=== PATIENT | male | born 1980 | race American Indian/Alaskan Native ===

== ENCOUNTER 2020-08-01 21:22 | Inpatient (IN) | payer OTHER ==
[2020-08-01] MEDS ORDERED: SODIUM CHLORIDE 0.9% 1000 ML 1,000 ML IV ONE ×2 (21:40→22:10)
--- NOTE | 2020-08-01 21:50 | Emergency Department Report ---
HPI - General Chief Complaint: Arrhythmia/Palpitations Time Seen by Provider: 08/01/20 21:28 - HPI HPI: Room 3 The patient is a 40-year-old male present with a chief complaint of syncope. The patient was at a restaurant stating he had eaten some chips and salsa when he says he began feeling lightheaded and short of breath. Patient states he got up to go outside to "get some air" when he had a syncopal episode. The patient awakened on the floor inside the restaurant said he felt hot and diaphoretic and then had episodes of nausea and vomiting. Patient states he began to feel better after vomiting. Family escorted/carried the patient outside when they encountered EMS who was on scene for another event. EMS states the patient was diaphoretic bradycardic and hypotensive with a BP of 84/50 and a heart rate of sinus bradycardia of 42 bpm. EMS initiated dopamine and transported the patient to the ED. In the ED the patient was found to be slightly hypertensive and tachycardic but states that he feels good. Dopamine was paused. Patient denies any recent flights or long car trips. Patient denied having pain of any type. Patient denies any history of fever or cough. Patient states he felt "good all day." ED Past Medical Hx - Past Medical History Previous Medical History?: No - Surgical History Past Surgical History?: Yes Additional Surgical History: Hernia - Family History Family history: no significant - Social History Smoking Status: Current Some Day Smoker Substance Use Type: None ED Review of Systems ROS: Stated complaint: HYPOTENSION/BRADYCARDIA Other details as noted in HPI Constitutional: diaphoresis Eyes: denies: eye pain ENT: denies: throat pain Respiratory: shortness of breath. denies: cough Cardiovascular: denies: chest pain Endocrine: no symptoms reported Gastrointestinal: nausea, vomiting Genitourinary: denies: dysuria Musculoskeletal: denies: back pain Neurological: denies: headache Physical Exam - Physical Exam Vital Signs: Vital Signs 08/01/20 08/01/20 21:44 21:45 Pulse Rate 75 74 Respiratory 23 25 H Rate Blood Pressure 168/84 O2 Sat by Pulse 94 92 Oximetry Physical Exam: GENERAL: The patient is well-developed well-nourished male lying on stretcher holding emesis bag but not appearing to be in acute distress. [] HEENT: Normocephalic. Atraumatic. Extraocular motions are intact. Patient has moist mucous membranes. NECK: Supple. Trachea midline CHEST/LUNGS: Clear to auscultation. There is no respiratory distress noted. HEART/CARDIOVASCULAR: Regular. There is tachycardia. There is no gallop rub or murmur. ABDOMEN: Abdomen is soft, nontender. Patient has normal bowel sounds. There is no abdominal distention. SKIN: There is no rash. There is no edema. There is no diaphoresis. NEURO: The patient is awake, alert, and oriented. The patient is cooperative. The patient has no focal neurologic deficits. The patient has normal speech. C ranial nerves II through XII grossly intact. GCS 15 MUSCULOSKELETAL: There is no evidence of acute injury. ED Course Vital Signs 08/01/20 08/01/20 21:44 21:45 Pulse Rate 75 74 Respiratory 23 25 H Rate Blood Pressure 168/84 O2 Sat by Pulse 94 92 Oximetry - Reevaluation(s) Reevaluation #1: 08/01/20 22:39 Patient's blood pressure has trended down to 89 systolic with a heart rate ranging from the 40s to 50s. Patient states he still feels good. Patient receiving second liter of IV fluid if vital signs not improve dopamine will be restarted - Consultations Consultation #1: 08/01/20 22:12 Cardiology paged 08/01/20 22:25 Case and EKG discussed with Dr. Nelson Gillespie-agrees with IV fluids and dopamine as needed - Central Line Placement Right Femoral Consent Obtained: verbal consent Time Out Performed: Yes Patient Placed on Monitor/Pulse Ox: Yes MD Prep: mask, gown, gloves Central Line Prep: Chlorhexidine scrub Local Anesthesia Used: Lidocaine 1% Amount of Anesthesia Used (mls): 5 Ultrasound Used for Placement: No Central Line Lumen Inserted: triple Reason for Insertion: High Alert Medication Bloods Obtained for Lab: No Central Line Position: good blood return, all ports aspirated, flus, other (Secured with adhesive) Dressing Applied: Tegaderm Patient Tolerated Procedure: well, no complications Complications: none ED Medical Decision Making - Lab Data Result diagrams: 08/01/20 21:49 08/01/20 21:49 Laboratory Tests 08/01/20 08/01/20 08/01/20 21:49 21:49 21:49 WBC 6.0 RBC 5.31 H Hgb 15.6 H Hct 47.5 H MCV 90 MCH 30 MCHC 33 RDW 14.8 Plt Count 298 Add Manual Diff Complete Total Counted 100 Seg Neutrophils % Hydrogen Braze Furnace Operator Seg Neuts % (Manual) 31.0 L Lymphocytes % (Manual) 50.0 H Monocytes % (Manual) 10.0 H Eosinophils % (Manual) 8.0 H Basophils % (Manual) 1.0 Nucleated RBC % Not Reportable Seg Neutrophils # Man 1.9 Band Neutrophils # 0.0 Lymphocytes # (Manual) 3.0 Abs React Lymphs (Man) 0.0 Monocytes # (Manual) 0.6 Eosinophils # (Manual) 0.5 H Basophils # (Manual) 0.1 Metamyelocytes # 0.0 Myelocytes # 0.0 Promyelocytes # 0.0 Blast Cells # 0.0 WBC Morphology Not Reportable Hypersegmented Neuts Not Reportable Hyposegmented Neuts Not Reportable Hypogranular Neuts Not Reportable Smudge Cells Not Reportable Toxic Granulation Not Reportable Toxic Vacuolation Not Reportable Dohle Bodies Not Reportable Pelger-Huet Anomaly Not Reportable Kamryn Rods Not Reportable Platelet Estimate Not Reportable Clumped Platelets Not Reportable Plt Clumps, EDTA Not Reportable Large Platelets Not Reportable Giant Platelets Not Reportable Platelet Satelliting Not Reportable Plt Morphology Comment Not Reportable RBC Morphology Normal Dimorphic RBCs Not Reportable Polychromasia Not Reportable Hypochromasia Not Reportable Poikilocytosis Not Reportable Anisocytosis Not Reportable Microcytosis Not Reportable Macrocytosis Not Reportable Spherocytes Not Reportable Pappenheimer Bodies Not Reportable Sickle Cells Not Reportable Target Cells Not Reportable Tear Drop Cells Not Reportable Ovalocytes Not Reportable Helmet Cells Not Reportable [place] Bodies Not Reportable [place] Rings Not Reportable [place] Cells Not Reportable Bite Cells Not Reportable Crenated Cell Not Reportable Elliptocytes Not Reportable Acanthocytes (Spur) Not Reportable Rouleaux Not Reportable Hemoglobin C Crystals Not Reportable Schistocytes Not Reportable Malaria parasites Not Reportable Jigar Bodies Not Reportable Hem Pathologist Commnt No D-Dimer < 135.00 Sodium 139 Potassium 3.6 Chloride 99.2 Carbon Dioxide 25 Anion Gap 18 BUN 13 Creatinine 1.2 Estimated GFR > 60 BUN/Creatinine Ratio 11 Glucose 150 H Lactic Acid Calcium 9.3 Magnesium Total Bilirubin 0.30 AST 25 ALT 19 Alkaline Phosphatase 90 Total Creatine Kinase 235 H CK-MB (CK-2) 2.1 CK-MB (CK-2) Rel Index 0.8 Troponin T NT-Pro-B Natriuret Pep Total Protein 8.4 H Albumin 4.9 Albumin/Globulin Ratio 1.4 Lipase 36 TSH Free T4 Plasma/Serum Alcohol 08/01/20 08/01/20 08/01/20 21:49 21:49 21:49 WBC RBC Hgb Hct MCV MCH MCHC RDW Plt Count Add Manual Diff Total Counted Seg Neutrophils % Seg Neuts % (Manual) Lymphocytes % (Manual) Monocytes % (Manual) Eosinophils % (Manual) Basophils % (Manual) Nucleated RBC % Seg Neutrophils # Man Band Neutrophils # Lymphocytes # (Manual) Abs React Lymphs (Man) Monocytes # (Manual) Eosinophils # (Manual) Basophils # (Manual) Metamyelocytes # Myelocytes # Promyelocytes # Blast Cells # WBC Morphology Hypersegmented Neuts Hyposegmented Neuts Hypogranular Neuts Smudge Cells Toxic Granulation Toxic Vacuolation Dohle Bodies Pelger-Huet Anomaly Kamryn Rods Platelet Estimate Clumped Platelets Plt Clumps, EDTA Large Platelets Giant Platelets Platelet Satelliting Plt Morphology Comment RBC Morphology Dimorphic RBCs Polychromasia Hypochromasia Poikilocytosis Anisocytosis Microcytosis Macrocytosis Spherocytes Pappenheimer Bodies Sickle Cells Target Cells Tear Drop Cells Ovalocytes Helmet Cells [place] Bodies [place] Rings Yamilet Cells Bite Cells Crenated Cell Elliptocytes Acanthocytes (Spur) Rouleaux Hemoglobin C Crystals Schistocytes Malaria parasites Jigar Bodies Hem Pathologist Commnt D-Dimer Sodium Potassium Chloride Carbon Dioxide Anion Gap BUN Creatinine Estimated GFR BUN/Creatinine Ratio Glucose Lactic Acid 2.20 H* Calcium Magnesium Total Bilirubin AST ALT Alkaline Phosphatase Total Creatine Kinase CK-MB (CK-2) CK-MB (CK-2) Rel Index Troponin T < 0.010 NT-Pro-B Natriuret Pep 48.37 Total Protein Albumin Albumin/Globulin Ratio Lipase TSH 5.650 H Free T4 1.12 Plasma/Serum Alcohol 08/01/20 08/01/20 21:49 21:49 WBC RBC Hgb Hct MCV MCH MCHC RDW Plt Count Add Manual Diff Total Counted Seg Neutrophils % Seg Neuts % (Manual) Lymphocytes % (Manual) Monocytes % (Manual) Eosinophils % (Manual) Basophils % (Manual) Nucleated RBC % Seg Neutrophils # Man Band Neutrophils # Lymphocytes # (Manual) Abs React Lymphs (Man) Monocytes # (Manual) Eosinophils # (Manual) Basophils # (Manual) Metamyelocytes # Myelocytes # Promyelocytes # Blast Cells # WBC Morphology Hypersegmented Neuts Hyposegmented Neuts Hypogranular Neuts Smudge Cells Toxic Granulation Toxic Vacuolation Dohle Bodies Pelger-Huet Anomaly Kamryn Rods Platelet Estimate Clumped Platelets Plt Clumps, EDTA Large Platelets Giant Platelets Platelet Satelliting Plt Morphology Comment RBC Morphology Dimorphic RBCs Polychromasia Hypochromasia Poikilocytosis Anisocytosis Microcytosis Macrocytosis Spherocytes Pappenheimer Bodies Sickle Cells Target Cells Tear Drop Cells Ovalocytes Helmet Cells [place] Bodies [place] Rings [place] Cells Bite Cells Crenated Cell Elliptocytes Acanthocytes (Spur) Rouleaux Hemoglobin C Crystals Schistocytes Malaria parasites Jigar Bodies Hem Pathologist Commnt D-Dimer Sodium Potassium Chloride Carbon Dioxide Anion Gap BUN Creatinine Estimated GFR BUN/Creatinine Ratio Glucose Lactic Acid Calcium Magnesium 2.00 Total Bilirubin AST ALT Alkaline Phosphatase Total Creatine Kinase CK-MB (CK-2) CK-MB (CK-2) Rel Index Troponin T NT-Pro-B Natriuret Pep Total Protein Albumin Albumin/Globulin Ratio Lipase TSH Free T4 Plasma/Serum Alcohol < 0.01 - EKG Data -: EKG Interpreted by Me Rate: bradycardia (55 bpm) - EKG Data When compared to previous EKG there are: previous EKG unavailable Interpretation: other (Ectopic atrial burst bradycardia) - Radiology Data Radiology results: report reviewed (Chest x-ray), image reviewed (Chest x-ray) interpreted by me: Chest x-ray-no focal infiltrates, no pneumothorax. No foreign body seen [facility] [address] [place] [address] XRay Report Signed Patient: VERONICA MORA MR#: [id number] : 1980 Acct:[id number] Age/Sex: 40 / M ADM Date: 08/01/20 Loc: ED Attending Dr: Ordering Physician: DAVID MORA MD Date of Service: 08/02/20 Procedure(s): XR chest 1V ap Accession Number(s): [id number] cc: DAVID MORA MD Fluoro Time In Minutes: CHEST 1 VIEW 08/01/2020 11:23 PM INDICATION / CLINICAL INFORMATION: Shortness of breath. COMPARISON: None available. FINDINGS: SUPPORT DEVICES: None. HEART / MEDIASTINUM: No significant abnormality. LUNGS / PLEURA: No significant pulmonary or pleural abnormality. No pneumothorax. ADDITIONAL FINDINGS: No significant additional findings. IMPRESSION: No acute abnormality. Signer Name: Luisito Carrillo MD Signed: 08/02/2020 12:26 AM Workstation Name: [id number] Transcribed By: ES Dictated By: Luisito Carrillo MD Electronically Authenticated By: Luisito Carrillo MD Signed Date/Time: 08/02/2025 DD/ TD/TT: Print Cancel - Differential Diagnosis Syncope, vasovagal syncope, PE, pneumonia, symptomatic anemia, Critical care attestation.: If time is entered above; I have spent that time in minutes in the direct care of this critically ill patient, excluding procedure time. ED Disposition Clinical Impression: Syncope, Hypotension, Bradycardia Disposition: DC-09 OP ADMIT IP TO THIS HOSP Is pt being admited?: Yes Does the pt Need Aspirin: Yes Condition: Fair Instructions: Syncope (ED) Referrals: PRIMARY CARE, [Primary Care Provider] - 3-5 Days Time of Disposition: 23:38 (Hospitalist paged (Dr Ruth))
[2020-08-01 22:25] LABS: Hematocrit 47.5 % (35.5-45.6); Hemoglobin 15.6 gm/dl (11.8-15.2); Mean Corpuscular HGB Conc 33 % (32-34); Mean Corpuscular Volume 90 fl (84-94); Platelet Count 298 K/mm3 (140-440); Red Blood Count 5.31 M/mm3 (3.65-5.03); Red Cell Distribution Width 14.8 % (13.2-15.2)
[2020-08-01 22:26] LABS: Alanine Aminotransferase 19 units/L (7-56); Albumin 4.9 g/dL (3.9-5); BUN/Creatinine Ratio 11; Blood Urea Nitrogen 13 mg/dL (9-20); Calcium 9.3 mg/dL (8.4-10.2); Creatine Kinase MB 2.1 ng/mL (0.0-4.0); Hemolysis Index 7
[2020-08-01 22:40] LABS: Free T4 (Free Thyroxine) 1.12 ng/dL (0.76-1.46)
[2020-08-01 23:08] LABS: RBC Morphology Normal; Total Cells Counted 100
[2020-08-01] MEDS ORDERED: DOPamine/D5W 800 MG/250 ML 800 MG/250 ML BAG IV ONE (23:24)
[2020-08-01] MEDS ORDERED: ASPIRIN 325 MG TAB PO ONE (23:38)
--- NOTE | 2020-08-02 00:30 | XRay Report ---
CHEST 1 VIEW 08/01/2020 11:23 PM INDICATION / CLINICAL INFORMATION: Shortness of breath. COMPARISON: None available. FINDINGS: SUPPORT DEVICES: None. HEART / MEDIASTINUM: No significant abnormality. LUNGS / PLEURA: No significant pulmonary or pleural abnormality. No pneumothorax. ADDITIONAL FINDINGS: No significant additional findings. IMPRESSION: No acute abnormality. Signer Name: Luisito Carrillo MD Signed: 08/02/2020 12:26 AM Workstation Name: [id number]
[2020-08-02] MEDS ORDERED: MAGNESIUM HYDROXIDE (MOM) ORAL LIQD UDC PO PRN (00:42)
[2020-08-02] MEDS ORDERED: ONDANSETRON 4 MG/2 ML INJ IV PRN (00:42)
[2020-08-02] MEDS ORDERED: ACETAMINOPHEN 325 MG TAB PO PRN (00:42)
[2020-08-02] MEDS ORDERED: SODIUM CHLORIDE 0.9% 1000 ML 1,000 ML IV SCH (00:45)
--- NOTE | 2020-08-02 00:58 | History and Physical Report ---
History of Present Illness Date of examination: 08/02/20 Date of admission: 08/02/20 00:27 Chief complaint: Syncope History of present illness: 40-year-old -Citizen Of [place] male with no significant past medical history brought into the emergency room today with a complaint of syncope. Patient indicates that he was having some chips and salsa when he suddenly started having some lightheadedness. He has also had some associated shortness of breath and thereafter had a syncopal episode. He later felt hot and diaphoretic in the restaurant and subsequently had episodes of nausea and vomiting. In route to the hospital EMS indicates that patient was bradycardic and hypotensive with a blood pressure of 84/50 with a heart rate of 42 bpm. Patient started on dopamine drip prior to arrival in the emergency room. Upon arrival in the emergency room blood pressure was slightly elevated and dopamine drip was withheld. Patient denies any fever or chills, no abdominal pain, no headache, no neck pain, no hematuria or dysuria. He denies any sick contacts and no recent travel. Denies any contact with anyone with COVID-19. Work-up in the emergency room today reveals EKG of ectopic atrial tachycardia. Chest x-ray shows no acute abnormality. Patient became hypotensive during the course of his stay in the emergency room and dopamine was restarted. Cleaning Manager Dr. Gillespie was consulted by the ER physician. Recommendation was to place patient on IV fluid and will be evaluated promptly. Patient is being admitted with syncope, bradycardia and hypotension. Past History Past Medical History: No medical history Past Surgical History: hernia repair Social history: smoking (Smokes tobacco occasionally), other (Uses marijuana occasionallylast use was about a week ago.) Family history: no significant family history Medications and Allergies Allergies Allergy/AdvReac Type Severity Reaction Status Date / Time No Known Allergies Allergy Verified 08/01/20 22:01 Active Meds: Active Medications Acetaminophen (Acetaminophen 325 Mg Tab) 650 mg PO Q4H PRN PRN Reason: Pain MILD(1-3)/Fever >100.5/WILSON Heparin Sodium (Porcine) (Heparin 5,000 Unit/1 Ml Vial) 5,000 unit SUB-Q Q8HR CRISTY Dopamine HCl/Dextrose (Intropin Drip 800 Mg/D5w 250 Ml) 800 mg in 250 mls @ 2.381 mls/hr IV TITR ONE; Protocol Stop: 08/06/20 08:23 Last Titration: 08/02/20 00:00 Dose: 6 mcg/kg/min, 7.144 mls/hr Documented by: Sodium Chloride (Nacl 0.9% 1000 Ml) 1,000 mls @ 125 mls/hr IV DIRECT CRISTY Magnesium Hydroxide (Magnesium Hydroxide (Mom) Oral Liqd Udc) 30 ml PO Q4H PRN PRN Reason: Constipation Ondansetron HCl (Ondansetron 4 Mg/2 Ml Inj) 4 mg IV Q8H PRN PRN Reason: Nausea And Vomiting Sodium Chloride (Sodium Chloride 0.9% 10 Ml Flush Syringe) 10 ml IV BID CRISTY Sodium Chloride (Sodium Chloride 0.9% 10 Ml Flush Syringe) 10 ml IV PRN PRN PRN Reason: LINE FLUSH Review of Systems Constitutional: no fever, no chills, no weakness Ears, nose, mouth and throat: no nasal congestion, no sore throat Cardiovascular: no chest pain, no palpitations Respiratory: no cough, no shortness of breath Gastrointestinal: nausea, vomiting, no abdominal pain, no diarrhea Genitourinary Male: no dysuria, no hematuria Musculoskeletal: no neck pain, no low back pain Integumentary: no rash, no pruritis Neurological: no headaches, no confusion Psychiatric: no anxiety, no depression Endocrine: no polyphagia, no polydipsia, no polyuria, no nocturia Exam - Constitutional Vitals: Temp Pulse Resp BP Pulse Ox 49 L 21 121/65 97 08/02/20 00:41 08/02/20 00:41 08/02/20 00:41 08/02/20 00:41 General appearance: Present: no acute distress, well-nourished - EENT Eyes: Present: PERRL, EOM intact. Absent: scleral icterus ENT: hearing intact, clear oral mucosa, dentition normal - Neck Neck: Present: supple, normal ROM - Respiratory Respiratory effort: normal Respiratory: bilateral: CTA - Cardiovascular Rhythm: regular Heart Sounds: Present: S1 & S2, gallop. Absent: systolic murmur, diastolic murmur, rub, click - Extremities Extremities: no ischemia, pulses intact, pulses symmetrical, No edema, normal temperature, normal color, Full ROM Peripheral Pulses: within normal limits - Abdominal General gastrointestinal: Present: soft, non-tender, non-distended, normal bowel sounds. Absent: mass - Integumentary Integumentary: Present: clear, warm, dry, normal turgor. Absent: rash - Musculoskeletal Musculoskeletal: strength equal bilaterally - Psychiatric Psychiatric: appropriate mood/affect, intact judgment & insight, memory intact, cooperative - Neurologic Neurologic: CNII-XII intact, no focal deficits, moves all extremities HEART Score - HEART Score Troponin: Troponin T < 0.010 ng/mL (0.00-0.029) 08/01/20 21:49 Results - Labs CBC & Chem 7: 08/01/20 21:49 08/01/20 21:49 Labs: Abnormal lab results 08/01/20 08/01/20 08/01/20 Range/Units 21:49 21:49 21:49 RBC 5.31 H (3.65-5.03) M/mm3 Hgb 15.6 H (11.8-15.2) gm/dl Hct 47.5 H (35.5-45.6) % Seg Neuts % (Manual) 31.0 L (40.0-70.0) % Lymphocytes % (Manual) 50.0 H (13.4-35.0) % Monocytes % (Manual) 10.0 H (0.0-7.3) % Eosinophils % (Manual) 8.0 H (0.0-4.3) % Eosinophils # (Manual) 0.5 H (0.0-0.4) K/mm3 Glucose 150 H (75-100) mg/dL Lactic Acid 2.20 H* (0.7-2.0) mmol/L Total Creatine Kinase 235 H (55-170) units/L Total Protein 8.4 H (6.3-8.2) g/dL TSH (0.270-4.200) mlU/mL 08/01/20 Range/Units 21:49 RBC (3.65-5.03) M/mm3 Hgb (11.8-15.2) gm/dl Hct (35.5-45.6) % Seg Neuts % (Manual) (40.0-70.0) % Lymphocytes % (Manual) (13.4-35.0) % Monocytes % (Manual) (0.0-7.3) % Eosinophils % (Manual) (0.0-4.3) % Eosinophils # (Manual) (0.0-0.4) K/mm3 Glucose (75-100) mg/dL Lactic Acid (0.7-2.0) mmol/L Total Creatine Kinase (55-170) units/L Total Protein (6.3-8.2) g/dL TSH 5.650 H (0.270-4.200) mlU/mL Assessment and Plan - Patient Problems (1) Syncope Current Visit: Yes Status: Acute Plan to address problem: Possibly secondary to hypotension and bradycardia. Patient currently on dopamine drip. We will schedule for echocardiogram. Consult placed to cardiology for further evaluation and recommendation. (2) Bradycardia Current Visit: Yes Status: Acute Plan to address problem: We await evaluation by cardiology. (3) Hypotension Current Visit: Yes Status: Acute Plan to address problem: We will continue patient on IV fluid and dopamine drip. We will monitor vital signs closely. (4) DVT prophylaxis Current Visit: Yes Status: Acute Plan to address problem: Patient placed on subcutaneous heparin. (5) Full code status Current Visit: Yes Status: Acute Plan to address problem: Patient is full code.
[2020-08-02 01:31] LABS: Bilirubin,Urine NEG (Negative); Blood,Urine NEG (Negative); Color,Urine Yellow (Yellow); Mucus,Urine 1+ /HPF; Protein,Urine <15 mg/dL mg/dL (Negative); Urobilinogen,Urine < 2.0 mg/dL (<2.0)
[2020-08-02 01:39] LABS: Amphetamine Screen,Urine PRESUMPTIVE NEGATIVE; Benzodiazepines Screen,Urine PRESUMPTIVE NEGATIVE; Cannabinoid Screen,Urine PRESUMPTIVE POSITIVE; Cocaine Screen,Urine PRESUMPTIVE NEGATIVE; Methadone Screen,Urine PRESUMPTIVE NEGATIVE; Opiate Screen,Urine PRESUMPTIVE NEGATIVE
[2020-08-02] MEDS: HEPARIN 5,000 UNIT/1 ML VIAL SUB-Q SCH ×3 (05:57→22:42)
--- NOTE | 2020-08-02 11:15 | Electrocardiograph Report ---
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
[2020-08-02] MEDS: SODIUM CHLORIDE 0.9% 1000 ML 1,000 ML IV SCH ×2 (11:53→20:24)
--- NOTE | 2020-08-02 14:04 | Event Note ---
Date: 08/02/20 Patient seen and examined this morning off dopamine drip. Will transfer to [facility] continue to monitor heart rate still trends into the low 40s. Blood pressure still low but asymptomatic. Patient given counseling about continued use of marijuana as he is not using it for any medical reasons.
--- NOTE | 2020-08-02 14:17 | Consultation ---
History of Present Illness Consult date: 08/02/20 Requesting physician: DAVID MORA Consult reason: bradycardia, syncope History of present illness: This patient is a 40-year-old male with no significant past medical history. He is previously unknown to our practice. Patient presents to [facility] ER via EMS after episode of syncope. Patient was eating at restaurant when he became hot and diaphoretic with episode of nausea/vomiting and light headedness. EMS initiated dopamine drip after patient was found to be hypotensive 84/50 and bradycardic heart rate 42. Patient currently denies any fever/chills, shortness of breath, chest pain, abdominal pain, N/V/D, recent illness or known exposures. At time of interview patient states he feels much better and is ready to be discharged home. Review of labs reveals subacute hypothyroidism with elevated TSH with normal T4. Past History Past Medical History: No medical history, other (See HPI) Past Surgical History: hernia repair Social history: smoking (Smokes tobacco occasionally), other (Uses marijuana occasionallylast use was about a week ago.) Family history: no significant family history Medications and Allergies Allergies Allergy/AdvReac Type Severity Reaction Status Date / Time No Known Allergies Allergy Verified 08/01/20 22:01 Home Medications Medication Instructions Recorded Confirmed Last Taken Type No Known Home Medications [No 08/02/20 08/02/20 Unknown History Reported Home Medications] Active Meds: Active Medications Acetaminophen (Acetaminophen 325 Mg Tab) 650 mg PO Q4H PRN PRN Reason: Pain MILD(1-3)/Fever >100.5/WILSON Last Admin: 08/02/20 05:56 Dose: 650 mg Documented by: Heparin Sodium (Porcine) (Heparin 5,000 Unit/1 Ml Vial) 5,000 unit SUB-Q Q8HR [facility] Last Admin: 08/02/20 13:01 Dose: 5,000 unit Documented by: Dopamine HCl/Dextrose (Intropin Drip 800 Mg/D5w 250 Ml) 800 mg in 250 mls @ 2.381 mls/hr IV TITR ONE; Protocol Stop: 08/06/20 08:23 Last Titration: 08/02/20 12:00 Dose: 0 mcg/kg/min, 0 mls/hr Documented by: Sodium Chloride (Nacl 0.9% 1000 Ml) 1,000 mls @ 100 mls/hr IV DIRECT [facility] Last Admin: 08/02/20 11:53 Dose: 100 mls/hr Documented by: Magnesium Hydroxide (Magnesium Hydroxide (Mom) Oral Liqd Udc) 30 ml PO Q4H PRN PRN Reason: Constipation Ondansetron HCl (Ondansetron 4 Mg/2 Ml Inj) 4 mg IV Q8H PRN PRN Reason: Nausea And Vomiting Sodium Chloride (Sodium Chloride 0.9% 10 Ml Flush Syringe) 10 ml IV BID [facility] Last Admin: 08/02/20 11:53 Dose: Not Given Documented by: Sodium Chloride (Sodium Chloride 0.9% 10 Ml Flush Syringe) 10 ml IV PRN PRN PRN Reason: LINE FLUSH Review of Systems Constitutional: no weight loss, no weight gain, no fever, no chills, no sweats Ears, nose, mouth and throat: no ear pain, no ear discharge, no nasal congestion, no nasal discharge, no sinus pressure Cardiovascular: syncope, lightheadedness, no chest pain, no orthopnea, no palpitations, no rapid/irregular heart beat, no edema, no shortness of breath, no dyspnea on exertion, no paroxysmal nocturnal dyspnea, no claudication, no phlebitis, no high blood pressure, no leg edema, no decreased exercise tolerance Respiratory: no cough, no cough with sputum, no hemoptysis, no shortness of breath, no dyspnea on exertion Gastrointestinal: nausea, vomiting, no abdominal pain, no diarrhea Genitourinary Male: no hematuria, no flank pain Musculoskeletal: no neck stiffness, no neck pain, no shooting arm pain, no arm numbness/tingling, no low back pain, no shooting leg pain Integumentary: no rash, no pruritis, no redness, no sores, no wounds Neurological: no head injury, no paralysis, no weakness, no parathesias, no numbness, no tingling, no seizures, no syncope Psychiatric: no anxiety Endocrine: no cold intolerance, no heat intolerance Hematologic/Lymphatic: no easy bruising, no easy bleeding Allergic/Immunologic: no urticaria Physical Examination Last Vital Signs Temp 97.6 F 08/02/20 12:00 Pulse 46 L 08/02/20 12:00 Resp 19 08/02/20 11:11 BP 124/74 08/02/20 11:11 Pulse Ox 100 08/02/20 11:11 General appearance: no acute distress HEENT: Positive: PERRL, Normocephaly, Mucus Membranes Moist Neck: Positive: neck supple, trachea midline Cardiac: Positive: Regular Rhythm, S1/S2, Bradycardia Lungs: Positive: Normal Exam, Normal Breath Sounds Neuro: Positive: Grossly Intact Abdomen: Positive: Unremarkable, Soft Skin: Negative: Rash, Wound Musculoskeletal: No Pain Extremities: Present: upper extr. pulses, lower extr. pulses. Absent: edema Results 08/01/20 21:49 08/01/20 21:49 Cardiac Enzymes 08/01/20 Range/Units 21:49 AST 25 (5-40) units/L CK-MB (CK-2) 2.1 (0.0-4.0) ng/mL CBC 08/01/20 Range/Units 21:49 WBC 6.0 (4.5-11.0) K/mm3 RBC 5.31 H (3.65-5.03) M/mm3 Hgb 15.6 H (11.8-15.2) gm/dl Hct 47.5 H (35.5-45.6) % Plt Count 298 (140-440) K/mm3 Comprehensive Metabolic Panel 08/01/20 Range/Units 21:49 Sodium 139 (137-145) mmol/L Potassium 3.6 (3.6-5.0) mmol/L Chloride 99.2 (98-107) mmol/L Carbon Dioxide 25 (22-30) mmol/L BUN 13 (9-20) mg/dL Creatinine 1.2 (0.8-1.3) mg/dL Glucose 150 H (75-100) mg/dL Calcium 9.3 (8.4-10.2) mg/dL AST 25 (5-40) units/L ALT 19 (7-56) units/L Alkaline Phosphatase 90 (35-129) units/L Total Protein 8.4 H (6.3-8.2) g/dL Albumin 4.9 (3.9-5) g/dL - Imaging and Cardiology Echo: pending EKG: report reviewed, image reviewed EKG interpretations - Telemetry EKG Rhythm: Sinus Bradycardia - EKG Sinus rhythms and dysrhythmias: sinus bradycardia Assessment and Plan Telemetry reviewed: Sinus rhythm 66, low heart rate of sinus bradycardia 45 noted overnight * Syncope in the setting of bradycardia * Twelve-lead ECG reviewed: No ST segment elevation. Troponin is negative x1. Continue to trend CE's. * Wean off dopamine. Initiate fluid bolus 1 L normal saline IV drip. Echocardiogram is pending. Lexiscan MPI stress test scheduled pending in a .m. N.p.o. after midnight. Continue to monitor on telemetry. * Hypothyroidism, subacute * Management per primary team * DVT prophylaxis * Heparin SQ, aspirin 325 mg daily No objections to patient moving to telemetry from cardiac standpoint. Will follow This patient was seen in conjunction with Dr. Kuldip Sutton who agrees with this assessment and plan of care Assessment and Plan - Patient Problems (1) Syncope Current Visit: Yes Status: Acute Plan to address problem: (2) Bradycardia Current Visit: Yes Status: Acute Plan to address problem: (3) Hypotension Current Visit: Yes Status: Acute Plan to address problem: (4) DVT prophylaxis Current Visit: Yes Status: Acute Plan to address problem: (5) Full code status Current Visit: Yes Status: Acute Plan to address problem: (6) Hypothyroidism Current Visit: Yes Status: Acute Plan to address problem:
--- NOTE | 2020-08-02 16:57 | Consultation ---
History of Present Illness Consult date: 08/02/20 Requesting physician: ISAK NAJERA Reason for consult: dyspnea History of present illness: 40-year-old -[place] male with no significant past medical history brought into the emergency room today with a complaint of syncope. Patient indicates that he was having some chips and salsa when he suddenly started wilson ving some lightheadedness. He has also had some associated shortness of breath and thereafter had a syncopal episode. He later felt hot and diaphoretic in the restaurant and subsequently had episodes of nausea and vomiting. En route to the hospital EMS indicates that patient was bradycardic and hypotensive with a blood pressure of 84/50 with a heart rate of 42 bpm. Patient started on dopamine drip prior to arrival in the emergency room. Patient denies any fever or chills, no abdominal pain, no headache, no neck pain, no hematuria or dysuria. He denies any sick contacts and no recent travel. Denies any contact with anyone with COVID-19. Off Dopamine now and feeling better, wanting to go home. Past History Past Medical History: No medical history, other (See HPI) Past Surgical History: hernia repair Social history: smoking (Smokes tobacco occasionally), other (Uses marijuana occasionallylast use was about a week ago.) Family history: no significant family history Medications and Allergies Allergies Allergy/AdvReac Type Severity Reaction Status Date / Time No Known Allergies Allergy Verified 08/01/20 22:01 Home Medications Medication Instructions Recorded Confirmed Last Taken Type No Known Home Medications [No 08/02/20 08/02/20 Unknown History Reported Home Medications] Active Meds: Active Medications Acetaminophen (Acetaminophen 325 Mg Tab) 650 mg PO Q4H PRN PRN Reason: Pain MILD(1-3)/Fever >100.5/WILSON Last Admin: 08/02/20 05:56 Dose: 650 mg Documented by: Heparin Sodium (Porcine) (Heparin 5,000 Unit/1 Ml Vial) 5,000 unit SUB-Q Q8HR [facility] Last Admin: 08/02/20 13:01 Dose: 5,000 unit Documented by: Dopamine HCl/Dextrose (Intropin Drip 800 Mg/D5w 250 Ml) 800 mg in 250 mls @ 2.381 mls/hr IV TITR ONE; Protocol Stop: 08/06/20 08:23 Last Titration: 08/02/20 12:00 Dose: 0 mcg/kg/min, 0 mls/hr Documented by: Sodium Chloride (Nacl 0.9% 1000 Ml) 1,000 mls @ 100 mls/hr IV DIRECT [facility] Last Admin: 08/02/20 11:53 Dose: 100 mls/hr Documented by: Magnesium Hydroxide (Magnesium Hydroxide (Mom) Oral Liqd Udc) 30 ml PO Q4H PRN PRN Reason: Constipation Ondansetron HCl (Ondansetron 4 Mg/2 Ml Inj) 4 mg IV Q8H PRN PRN Reason: Nausea And Vomiting Sodium Chloride (Sodium Chloride 0.9% 10 Ml Flush Syringe) 10 ml IV BID [facility] Last Admin: 08/02/20 11:53 Dose: Not Given Documented by: Sodium Chloride (Sodium Chloride 0.9% 10 Ml Flush Syringe) 10 ml IV PRN PRN PRN Reason: LINE FLUSH Review of Systems All systems: negative Physical Examination Vital signs: Vital Signs Pulse Resp BP Pulse Ox 101 H 14 139/67 97 08/01/20 21:36 08/01/20 21:36 08/01/20 21:36 08/01/20 21:36 General appearance: no acute distress, alert Eyes: non-icteric Neck: supple Effort: normal Ascultation: Bilateral: clear Cardiovascular: other (elpidio, RR; no mrg) Gastrointestinal: normoactive bowel sounds, soft, non-tender Integumentary: normal Extremities: no cyanosis, no edema, pink and warm Musculoskeletal: no deformities normal mental status, non-focal exam, pupils equal and round mood appropriate, affect normal Results - Laboratory Findings CBC and BMP: 08/01/20 21:49 08/01/20 21:49 PT/INR, D-dimer D-Dimer < 135.00 ng/mlDDU (0-234) 08/01/20 21:49 Abnormal lab findings: Abnormal Labs 08/01/20 08/01/20 08/01/20 21:49 21:49 21:49 RBC 5.31 H Hgb 15.6 H Hct 47.5 H Seg Neuts % (Manual) 31.0 L Lymphocytes % (Manual) 50.0 H Monocytes % (Manual) 10.0 H Eosinophils % (Manual) 8.0 H Eosinophils # (Manual) 0.5 H Glucose 150 H Lactic Acid 2.20 H* Total Creatine Kinase 235 H Total Protein 8.4 H TSH 08/01/20 21:49 RBC Hgb Hct Seg Neuts % (Manual) Lymphocytes % (Manual) Monocytes % (Manual) Eosinophils % (Manual) Eosinophils # (Manual) Glucose Lactic Acid Total Creatine Kinase Total Protein TSH 5.650 H - Diagnostic Findings Chest x-ray: report reviewed, image reviewed (clear lungs) Assessment and Plan Imp: 1. Sinus bradycardia 2. Hypotension 3. Polycythemia 4. Volume depletion 5. Nicotine dependence, cigarettes Rec: 1. Off Dopamine currently; f/u cardiac work-up; pulm-phillips he is stable and needs to d/c cigarettes and THC 2. Further plans pending clinical course Plan of care reviewed w/ patient, he understands/agrees
[2020-08-03 05:24] LABS: Basophils % (Auto) 0.7 % (0.0-1.8); Eosinophils # (Auto) 0.2 K/mm3 (0.0-0.4); Eosinophils % (Auto) 3.5 % (0.0-4.3); Hematocrit 36.9 % (35.5-45.6); Hemoglobin 12.2 gm/dl (11.8-15.2); Lymphocytes # (Auto) 2.3 K/mm3 (1.2-5.4); Lymphocytes % (Auto) 35.7 % (13.4-35.0); Mean Corpuscular HGB Conc 33 % (32-34); Mean Corpuscular Volume 89 fl (84-94); Monocytes # (Auto) 0.6 K/mm3 (0.0-0.8); Monocytes % (Auto) 9.7 % (0.0-7.3); Platelet Count 222 K/mm3 (140-440); Red Blood Count 4.14 M/mm3 (3.65-5.03); Red Cell Distribution Width 14.4 % (13.2-15.2)
[2020-08-03 05:34] LABS: INR 1.04 (0.87-1.13)
[2020-08-03 05:42] LABS: BUN/Creatinine Ratio 14; Blood Urea Nitrogen 17 mg/dL (9-20); Calcium 8.3 mg/dL (8.4-10.2); Hemolysis Index 2
[2020-08-03] MEDS: HEPARIN 5,000 UNIT/1 ML VIAL SUB-Q SCH (05:53)
[2020-08-03] MEDS: SODIUM CHLORIDE 0.9% 1000 ML 1,000 ML IV SCH (05:54)
--- NOTE | 2020-08-03 08:57 | Progress Note ---
Assessment and Plan - Patient Problems (1) Obesity (BMI 30-39.9) Current Visit: Yes Status: Acute (2) Hypotension Current Visit: Yes Status: Acute (3) Syncope Current Visit: Yes Status: Acute Subjective Interval history: no change Objective Vital Signs - 12hr 08/02/20 08/02/20 08/02/20 21:00 21:11 21:20 Temperature Pulse Rate 41 L 50 L 41 L Pulse Rate [ From Monitor] Respiratory 21 19 13 Rate Blood Pressure 99/56 99/56 99/56 O2 Sat by Pulse 99 100 100 Oximetry 08/02/20 08/02/20 08/02/20 21:30 21:40 21:51 Temperature Pulse Rate 47 L 48 L 39 L Pulse Rate [ From Monitor] Respiratory 13 11 L 12 Rate Blood Pressure 99/56 99/56 99/56 O2 Sat by Pulse 99 99 99 Oximetry 08/02/20 08/02/20 08/02/20 22:01 22:11 22:21 Temperature Pulse Rate 44 L 43 L 45 L Pulse Rate [ From Monitor] Respiratory 13 21 21 Rate Blood Pressure 102/64 102/64 102/64 O2 Sat by Pulse 99 99 97 Oximetry 08/02/20 08/02/20 08/02/20 22:31 22:33 22:41 Temperature Pulse Rate 44 L 42 L 45 L Pulse Rate [ From Monitor] Respiratory 22 22 8 L Rate Blood Pressure 102/64 102/64 102/64 O2 Sat by Pulse 98 98 99 Oximetry 08/02/20 08/02/20 08/02/20 22:51 23:00 23:11 Temperature Pulse Rate 43 L 41 L 42 L Pulse Rate [ From Monitor] Respiratory 22 19 21 Rate Blood Pressure 102/64 97/57 97/57 O2 Sat by Pulse 98 98 98 Oximetry 08/02/20 08/02/20 08/02/20 23:21 23:31 23:41 Temperature Pulse Rate 48 L 47 L 42 L Pulse Rate [ From Monitor] Respiratory 30 H 18 23 Rate Blood Pressure 97/57 97/57 97/57 O2 Sat by Pulse 97 98 98 Oximetry 08/02/20 08/02/20 08/03/20 23:46 23:51 00:00 Temperature 98.9 F Pulse Rate 44 L 40 L Pulse Rate [ 38 L From Monitor] Respiratory 23 16 Rate Blood Pressure 97/57 98/56 O2 Sat by Pulse 98 100 Oximetry 08/03/20 08/03/20 08/03/20 00:11 00:21 00:31 Temperature Pulse Rate 38 L 37 L 45 L Pulse Rate [ From Monitor] Respiratory 20 19 15 Rate Blood Pressure 98/56 98/56 98/56 O2 Sat by Pulse 100 98 99 Oximetry 08/03/20 08/03/20 08/03/20 00:41 00:51 01:00 Temperature Pulse Rate 42 L 41 L 40 L Pulse Rate [ From Monitor] Respiratory 19 23 21 Rate Blood Pressure 98/56 98/56 96/56 O2 Sat by Pulse 100 99 97 Oximetry 08/03/20 08/03/20 08/03/20 01:11 01:21 01:31 Temperature Pulse Rate 42 L 42 L 46 L Pulse Rate [ From Monitor] Respiratory 21 22 12 Rate Blood Pressure 96/56 96/56 98/56 O2 Sat by Pulse 98 98 99 Oximetry 08/03/20 08/03/20 08/03/20 01:41 01:51 02:00 Temperature Pulse Rate 38 L 39 L 39 L Pulse Rate [ From Monitor] Respiratory 21 20 21 Rate Blood Pressure 98/56 98/56 104/59 O2 Sat by Pulse 98 98 98 Oximetry 08/03/20 08/03/20 08/03/20 02:11 02:21 02:31 Temperature Pulse Rate 43 L 39 L 40 L Pulse Rate [ From Monitor] Respiratory 22 20 22 Rate Blood Pressure 104/59 104/59 104/59 O2 Sat by Pulse 98 100 99 Oximetry 08/03/20 08/03/20 08/03/20 02:40 02:51 03:00 Temperature Pulse Rate 43 L 41 L 41 L Pulse Rate [ From Monitor] Respiratory 24 19 21 Rate Blood Pressure 104/59 104/59 103/57 O2 Sat by Pulse 98 100 98 Oximetry 08/03/20 08/03/20 08/03/20 03:11 03:21 03:31 Temperature Pulse Rate 42 L 41 L 38 L Pulse Rate [ From Monitor] Respiratory 20 18 20 Rate Blood Pressure 103/57 103/57 103/57 O2 Sat by Pulse 99 99 98 Oximetry 08/03/20 08/03/20 08/03/20 03:41 03:51 04:00 Temperature 98.4 F Pulse Rate 39 L 37 L 36 L Pulse Rate [ 38 L From Monitor] Respiratory 20 16 19 Rate Blood Pressure 103/57 103/57 100/57 O2 Sat by Pulse 99 100 99 Oximetry 08/03/20 08/03/20 08/03/20 04:11 04:21 04:31 Temperature Pulse Rate 36 L 45 L 48 L Pulse Rate [ From Monitor] Respiratory 18 13 17 Rate Blood Pressure 100/57 100/57 100/57 O2 Sat by Pulse 99 100 99 Oximetry 08/03/20 08/03/20 08/03/20 04:41 04:51 05:00 Temperature Pulse Rate 45 L 52 L 37 L Pulse Rate [ From Monitor] Respiratory 26 H 15 21 Rate Blood Pressure 100/57 100/57 108/61 O2 Sat by Pulse 99 99 100 Oximetry 08/03/20 08/03/20 08/03/20 05:11 05:21 05:31 Temperature Pulse Rate 39 L 41 L 40 L Pulse Rate [ From Monitor] Respiratory 21 17 21 Rate Blood Pressure 108/61 108/61 108/61 O2 Sat by Pulse 99 99 97 Oximetry 08/03/20 08/03/20 08/03/20 05:41 05:51 06:00 Temperature Pulse Rate 40 L 45 L 40 L Pulse Rate [ From Monitor] Respiratory 22 23 21 Rate Blood Pressure 108/61 108/61 95/55 O2 Sat by Pulse 97 97 98 Oximetry 08/03/20 08/03/20 08/03/20 06:11 06:21 06:31 Temperature Pulse Rate 41 L 50 L 41 L Pulse Rate [ From Monitor] Respiratory 20 21 22 Rate Blood Pressure 95/55 95/55 95/55 O2 Sat by Pulse 97 98 97 Oximetry 08/03/20 08/03/20 08/03/20 06:41 06:51 07:01 Temperature Pulse Rate 39 L 39 L 39 L Pulse Rate [ From Monitor] Respiratory 20 14 21 Rate Blood Pressure 95/55 95/55 102/66 O2 Sat by Pulse 98 100 97 Oximetry 08/03/20 08/03/20 08/03/20 07:11 07:21 07:31 Temperature Pulse Rate 46 L 49 L 42 L Pulse Rate [ From Monitor] Respiratory 24 22 20 Rate Blood Pressure 102/66 102/66 102/66 O2 Sat by Pulse 99 99 98 Oximetry 08/03/20 08/03/20 08/03/20 07:41 07:51 08:00 Temperature Pulse Rate 47 L 63 47 L Pulse Rate [ From Monitor] Respiratory 18 11 L 12 Rate Blood Pressure 102/66 102/66 98/66 O2 Sat by Pulse 99 96 98 Oximetry Constitutional: no acute distress, alert Eyes: non-icteric Neck: supple Effort: normal Ascultation: Bilateral: clear Cardiovascular: other (elpidio, RR; no mrg) Gastrointestinal: normoactive bowel sounds, soft, non-tender Integumentary: normal Extremities: no cyanosis, no edema, pink and warm Neurologic: normal mental status, non-focal exam, pupils equal and round Psychiatric: mood appropriate, affect normal CBC and BMP: 08/03/20 04:59 08/03/20 04:59 ABG, PT/INR, D-dimer: PT/INR, D-dimer PT 13.4 Sec. (12.2-14.9) 08/03/20 04:59 INR 1.04 (0.87-1.13) 08/03/20 04:59 D-Dimer < 135.00 ng/mlDDU (0-234) 08/01/20 21:49 Abnormal lab findings: Abnormal Labs 08/01/20 08/01/20 08/01/20 21:49 21:49 21:49 RBC 5.31 H Hgb 15.6 H Hct 47.5 H Lymph % (Auto) [place] % (Auto) Seg Neuts % (Manual) 31.0 L Lymphocytes % (Manual) 50.0 H Monocytes % (Manual) 10.0 H Eosinophils % (Manual) 8.0 H Eosinophils # (Manual) 0.5 H Glucose 150 H Lactic Acid 2.20 H* Calcium Total Creatine Kinase 235 H Total Protein 8.4 H TSH 08/01/20 08/03/20 08/03/20 21:49 04:59 04:59 RBC Hgb Hct Lymph % (Auto) 35.7 H [place] % (Auto) 9.7 H Seg Neuts % (Manual) Lymphocytes % (Manual) Monocytes % (Manual) Eosinophils % (Manual) Eosinophils # (Manual) Glucose 71 L Lactic Acid Calcium 8.3 L Total Creatine Kinase Total Protein TSH 5.650 H
[2020-08-03] MEDS ORDERED: REGADENOSON 0.4 MG/5 ML INJ IV ONE (10:02)
--- NOTE | 2020-08-03 11:49 | Progress Note ---
Assessment and Plan Telemetry reviewed: Sinus rhythm 45. No events * Syncope in the setting of bradycardia * Twelve-lead ECG reviewed: No ST segment elevation. Troponin is negative x2. AMI is ruled out. * Echocardiogram reviewed (08/02/2020): LVEF is 50 to 55%. LV SF is normal. Mild diastolic dysfunction is present (impaired relaxation pattern). RV SF is normal. Mild TR. RVSP is 26 mmHg. No valvular abnormalities. * Treadmill MPI Stress Test (08/03/20) is negative for ischemia. Pt has appropriate HR response to exercise. * DVT prophylaxis * Heparin SQ, aspirin 325 mg daily Patient is currently in stable cardiac status. Presyncopal episode with prodrome is most likely vasovagal in nature. Ambient sinus bradycardia. Patient may discharge from cardiac standpoint. Patient should follow-up with Dr Yung Sutton in our [place] office on 08/17/2020 at 2:30 PM. #[id number] This patient was seen in conjunction with Dr. Kuldip Sutton who agrees with this assessment and plan of care Assessment and Plan - Patient Problems (1) Syncope Current Visit: Yes Status: Acute Plan to address problem: (2) Bradycardia Current Visit: Yes Status: Acute Plan to address problem: (3) Hypotension Current Visit: Yes Status: Acute Plan to address problem: (4) DVT prophylaxis Current Visit: Yes Status: Acute Plan to address problem: (5) Full code status Current Visit: Yes Status: Acute Plan to address problem: (6) Hypothyroidism Current Visit: Yes Status: Acute Plan to address problem: Subjective Date of service: 08/03/20 Principal diagnosis: Syncopal Episode Interval history: Patient resting comfortably in bed. No shortness of breath or chest pain overnight. Telemetry reviewed: Sinus bradycardia 45. No events Objective Last Vital Signs Temp 98.4 F 08/03/20 04:00 Pulse 49 L 08/03/20 08:51 Resp 22 08/03/20 08:51 BP 130/74 08/03/20 10:23 Pulse Ox 99 08/03/20 09:01 - Physical Examination General: No Apparent Distress HEENT: Positive: PERRL, Normocephaly, Mucus Membranes Moist Neck: Positive: neck supple, trachea midline Cardiac: Positive: Reg Rate and Rhythm, S1/S2 Lungs: Positive: clear to auscultation, Normal Breath Sounds Neuro: Positive: Grossly Intact Abdomen: Positive: Unremarkable, Soft Skin: Negative: Rash, Wound Musculoskeletal: No Pain Extremities: Present: upper extr. pulses, lower extr. pulses. Absent: edema - Labs and Meds Coagulation 08/03/20 Range/Units 04:59 PT 13.4 (12.2-14.9) Sec. INR 1.04 (0.87-1.13) CBC 08/03/20 Range/Units 04:59 WBC 6.3 (4.5-11.0) K/mm3 RBC 4.14 (3.65-5.03) M/mm3 Hgb 12.2 D (11.8-15.2) gm/dl Hct 36.9 D (35.5-45.6) % Plt Count 222 (140-440) K/mm3 Lymph # (Auto) 2.3 (1.2-5.4) K/mm3 [place] # (Auto) 0.6 (0.0-0.8) K/mm3 Eos # (Auto) 0.2 (0.0-0.4) K/mm3 Baso # (Auto) 0.0 (0.0-0.1) K/mm3 Comprehensive Metabolic Panel 08/03/20 Range/Units 04:59 Sodium 139 (137-145) mmol/L Potassium 4.3 (3.6-5.0) mmol/L Chloride 106.1 (98-107) mmol/L Carbon Dioxide 25 (22-30) mmol/L BUN 17 (9-20) mg/dL Creatinine 1.2 (0.8-1.3) mg/dL Glucose 71 L (75-100) mg/dL Calcium 8.3 L (8.4-10.2) mg/dL - Imaging and Cardiology EKG: report reviewed, image reviewed Nuclear stress test: report reviewed Echo: report reviewed - Telemetry EKG Rhythm: Sinus Bradycardia - EKG Sinus rhythms and dysrhythmias: sinus bradycardia
--- NOTE | 2020-08-03 12:52 | Discharge Summary ---
Providers - Providers Date of Admission: 08/02/20 00:27 Attending physician: ISAK NAJERA MD 08/02/20 00:27 Consult to Physician [CONS] Urgent Comment: Dr. Pandey spoke with Dr. Mack @ [id number] Consulting Provider: GRANT MACK Physician Instructions: Reason For Exam: Ectopic atrial bradycardia, syncope 08/02/20 01:47 Consult to Physician [CONS] Urgent Comment: dr. whitmore o/c re Consulting Provider: CALOS CHRISTIAN Physician Instructions: Reason For Exam: Syncope, Hypotension - On dopamine drip Primary care physician: SENIOR PRINCIPAL SOFTWARE ENGINEER Hospitalization Reason for admission: syncope Condition: Stable Hospital course: 40-year-old -[place] male with no significant past medical history brought into the emergency room today with a complaint of syncope. Patient indicates that he was having some chips and salsa when he suddenly started having some lightheadedness. He has also had some associated shortness of breath and thereafter had a syncopal episode. He later felt hot and diaphoretic in the restaurant and subsequently had episodes of nausea and vomiting. In route to the hospital EMS indicates that patient was bradycardic and hypotensive with a blood pressure of 84/50 with a heart rate of 42 bpm. Patient started on dopamine drip prior to arrival in the emergency room. Upon arrival in the emergency room blood pressure was slightly elevated and dopamine drip was withheld. Patient denies any fever or chills, no abdominal pain, no headache, no neck pain, no hematuria or dysuria. He denies any sick contacts and no recent travel. Denies any contact with anyone with COVID-19. Work-up in the emergency room today reveals EKG of ectopic atrial tachycardia. Chest x-ray shows no acute abnormality. Patient became hypotensive during the course of his stay in the emergency room and dopamine was restarted. Corporate Strategy Intern Dr. Mack was consulted by the ER physician. Recommendation was to place patient on IV fluid and will be evaluated promptly. Patient is being admitted with syncope, bradycardia and hypotension. Telemetry reviewed: Sinus rhythm 45. No events * Syncope in the setting of bradycardia * Twelve-lead ECG reviewed: No ST segment elevation. Troponin is negative x2. AMI is ruled out. * Echocardiogram reviewed (08/02/2020): LVEF is 50 to 55%. LV SF is normal. Mild diastolic dysfunction is present (impaired relaxation pattern). RV SF is normal. Mild TR. RVSP is 26 mmHg. No valvular abnormalities. * Treadmill MPI Stress Test (08/03/20) is negative for ischemia. Pt has appropriate HR response to exercise. * Bradycardia * Obesity * Hypotension * Marijuana use disorder Patient is currently in stable cardiac status. Presyncopal episode with prodrome is most likely vasovagal in nature. Ambient sinus bradycardia. Disposition: DC-01 TO HOME OR SELFCARE Final Discharge Diagnosis (Prints w/discharge instructions): Symptomatic Tello ycardia Time spent for discharge: 35 mins Core Measure Documentation - Palliative Care Palliative Care/ Comfort Measures: Not Applicable - Core Measures Any of the following diagnoses?: none Exam - Constitutional Vitals: Temp Pulse Resp BP Pulse Ox 98.4 F 49 L 22 130/74 99 08/03/20 04:00 08/03/20 08:51 08/03/20 08:51 08/03/20 10:23 08/03/20 09:01 General appearance: Present: no acute distress, well-nourished, obese - EENT Eyes: Present: PERRL, irregular pupil ENT: hearing intact, clear oral mucosa - Neck Neck: Present: supple - Respiratory Respiratory effort: normal Respiratory: bilateral: CTA - Cardiovascular Rhythm: regular - Extremities Extremities: no ischemia, pulses intact, No edema, normal temperature Peripheral Pulses: within normal limits - Abdominal General gastrointestinal: Present: soft, non-tender, non-distended - Rectal Rectal Exam: deferred - Integumentary Integumentary: Present: clear, warm, dry - Musculoskeletal Musculoskeletal: strength equal bilaterally, generalized weakness - Psychiatric Psychiatric: appropriate mood/affect, intact judgment & insight, memory intact, cooperative - Neurologic Neurologic: CNII-XII intact, moves all extremities - Allied Health Allied health notes reviewed: nursing Plan Activity: advance as tolerated, fall precautions Diet: low fat Special Instructions: record daily weights, smoking cessation Follow up with: HONG SANTIAGO MD [Primary Care Provider] - 3-5 Days MEME GOODE MD [Staff Physician] - 7 Days MELIZA BOOKER MD [Staff Physician] - 7 Days
[2020-08-03 13:20] VITALS: BP 108/72
--- NOTE | 2020-08-04 11:36 | Treadmill Report ---
[facility] Test Date: 2020-08-03 Test Time: 08:01:36 Pat Name: VERONICA MORA Department: Room: A267 1 Gender: M Tabulating Supervisor: Ambika Benitez : 1980 Requested By: ALBINO ALANIS Order Number: [id number] Reading MD: Kuldip Sutton Interpretive Statements Electronically Signed On 08-04-2020 11:35:51 EDT by Kuldip Sutton
--- NOTE | 2020-08-04 14:51 | Treadmill Report ---
DATE OF SERVICE: 08/03/2020 REFERRING PHYSICIAN: Hospitalist service. PROTOCOL: The patient was assessed in a postoperative state. Exercised on a standard Murphy protocol treadmill. At rest, the patient was given 10 mCi of Technetium-99m. Shortly thereafter, the patient underwent exercise stress test. At peak stress, the patient was given 26 mCi of Technetium-99m. Shortly thereafter, the patient underwent stress imaging. Raw imaging reveals mild GI artifact. No significant motion artifact. SPECT images were examined carefully in the horizontal long axis, vertical long axis, short axis views. There is normal homogenous uptake of radioisotope in all port segments. No evidence of significant fixed or reversible perfusion defect suggestive of prior infarction or ischemia. Gated wall motion reveals normal systolic thickening, calculated ejection fraction of 64%. No TID. CONCLUSIONS: 1. Normal myocardial perfusion scan without evidence of active ischemia or prior infarction. 2. Normal left ventricular systolic performance without evidence of transient ischemic dilatation or stress induced segmental wall motion. TID: [id number] RECEIPT: [id number] [facility]
== END 2020-08-03 13:25 | disposition home or self-care (01) | DRG 310 ==
LOC: ED 21:22 → CC1 08-02 00:27 → IMCU 08-02 14:27
PROVIDERS: ADMIT Internal Medicine Geriatric Medicine; ATTEND Internal Medicine
PROC: 06HY33Z Insertion of Infusion Device into Lower Vein, Percutaneous Approach (ICD-10-PCS; principal; 2020-08-02)
DX: R00.1 Bradycardia, unspecified (principal); I95.9 Hypotension, unspecified; E03.9 Hypothyroidism, unspecified; F17.210 Nicotine dependence, cigarettes, uncomplicated; E86.9 Volume depletion, unspecified; D75.1 Secondary polycythemia; E66.9 Obesity, unspecified; Z68.34 Body mass index [BMI] 34.0-34.9, adult; Z20.822 Contact with and (suspected) exposure to COVID-19
CPT/HCPCS: 36415; 71045; 78452; 80048; 80053; 80307; 80320; 81001; 82140; 82550; 82553; 83690; 83735; 83880; 84439; 84443; 84484; 85007; 85025; 85379; 85610; 87040; 93005; 93017; 93306; 96365; 99406; G0378; A9502; G0480; J1265; J1644; J2785; J7030; U0003